=== PATIENT | male | born 1955 ===

== ENCOUNTER 2018-03-29 10:14 | Day surgery (SDC) | payer OTHER ==
[~2018-03-29 10:14] MED LIST: ATACAND4 MG; NEURONTIN300 MG; PRILOSEC2.5 MG; [UNRECOGNIZED DRUG - OTHER]
[2018-03-29] MEDS ORDERED: ULTRACET PO (13:32)
[2018-03-29] MEDS ORDERED: ZOFRAN ODT4 MG PO (13:32)
[2018-03-29] MEDS ORDERED: MIRALAX17 GM PO (13:32)
[2018-03-29] MEDS ORDERED: NEURONTIN300 MG PO (15:23)
== END 2018-03-29 18:10 | disposition home or self-care (01) ==
LOC: CIR.AMB 10:14
DX: K40.90 Unilateral inguinal hernia, without obstruction or gangrene, not specified as recurrent (principal); K42.0 Umbilical hernia with obstruction, without gangrene